=== PATIENT | female | born 1970 | race Caucasian/White ===

== ENCOUNTER → 2019-09-27 10:17 | Outpatient (ROUT) | payer BC, SELFPAY ==
[2019-09-27 10:42] LABS: Influenza A - CEPHEID Flu A POSITIVE (NEGATIVE); Influenza B - CEPHEID Flu B NEGATIVE (NEGATIVE)
== END ==
PROVIDERS: Visit Provider Family Medicine
DX: R50.9 Fever, unspecified (principal); R52 Pain, unspecified; R19.7 Diarrhea, unspecified; R05 Cough
CPT/HCPCS: 87502

== ENCOUNTER → 2020-09-18 11:39 | Outpatient (CLI) | payer BC, SELFPAY ==
--- NOTE | 2020-09-18 | DI.CT.S_ITS ---
PROCEDURE: CT CHEST WO CON INDICATIONS: Gastro-esphageal reflux diseas TECHNIQUE: Noncontrast 5 mm thick sections acquired from the pulmonary apices to the posterior costophrenic angles. 1 mm lung window, 5 mm thick coronal and sagittal and 7 mm axial MIP reformats were then acquired. For radiation dose reduction, the following was used: automated exposure control, adjustment of mA and/or kV according to patient size. COMPARISON: [facility], CT, CT ABDOMEN WO CON, 09/18/2020, 12:15. FINDINGS: Image quality: Excellent. Lungs and pleura: No acute air space opacities. No pleural effusions or pneumothorax. Central and peripheral airways are patent and normal in caliber. Mediastinum: Heart size is normal. No pericardial effusion. No mediastinal adenopathy by size criteria. Thoracic aorta and central pulmonary arteries are normal in size. Esophagus is normal in caliber. There is a moderate-sized hiatal hernia. Surgical clips are noted at the gastroesophageal junction which may be secondary to prior fundoplication procedure. Patient is status post cholecystectomy. Bones and chest wall: No suspicious bony lesions. No vertebral body compression fractures. No axillary or supraclavicular adenopathy by size criteria. Thyroid gland is unremarkable . Abdomen: Visualized upper abdominal solid organs and bowel loops appear normal in the absence of contrast. IMPRESSION: 1. No pulmonary radiopacities or acute cardiopulmonary findings. 2. Moderate-sized hiatal hernia. Dictated by: Radha Ni M.D. on 09/18/2020 at 14:21 Approved by: Radha Ni M.D. on 09/18/2020 at 14:24
--- NOTE | 2020-09-18 11:47 | DI.CT.S_ITS ---
PROCEDURE: CT ABDOMEN WO CON INDICATIONS: Gastro-esophageal reflux disease TECHNIQUE: After the administration of oral contrast, 5 mm thick sections acquired from the diaphragms to the iliac crests. 5 mm coronal and sagittal reformats were then performed. For radiation dose reduction, the following was used: automated exposure control, adjustment of mA and/or kV according to patient size. COMPARISON: None. FINDINGS: Image quality: Excellent. Lung bases: Lung bases are clear. Heart size is normal. Surgical clips are noted at the gastroesophageal junction. There is a small to moderate hiatal hernia. Solid organs: Liver is normal in size. Although surgical clips are visualized near the gallbladder fossa, the gallbladder is present and fluid-filled. Trace sludge or sub millimeter stones are layered in the fundus. No gallbladder wall thickening or pericholecystic fluid. Pancreas is normal in contours. Spleen is normal in size. No adrenal nodules. The left kidney is not visualized and is presumably surgically absent. Right kidney is unremarkable. Peritoneum and bowel: Bowel loops demonstrate normal wall thickness and caliber. No free fluid or air. Nodes and vessels: No retroperitoneal or mesenteric adenopathy by size criteria. Aorta and inferior vena cava are normal in size. Trace atheromatous calcifications are noted throughout the abdominal aorta. Bones: No suspicious bony lesions. No vertebral body compression fractures. Miscellaneous: No ventral hernias. IMPRESSION: 1. Small to moderate hiatal hernia. Surgical clips likely associated with prior fundoplication. 2. Trace gallbladder sludge. No findings to suggest acute cholecystitis or choledocholithiasis. Dictated by: Radha Ni M.D. on 09/18/2020 at 15:08 Approved by: Radha Ni M.D. on 09/18/2020 at 15:28
== END ==
PROVIDERS: PCP Internal Medicine; Referring Provider Internal Medicine; Visit Provider Internal Medicine
DX: K21.9 Gastro-esophageal reflux disease without esophagitis (principal); K44.9 Diaphragmatic hernia without obstruction or gangrene
CPT/HCPCS: 71250; 74150

== ENCOUNTER → 2021-02-10 07:33 | Outpatient (CLI) | payer BC, OTHER, SELFPAY ==
--- NOTE | 2021-02-10 | DI.US.S_ITS ---
PROCEDURE: US ABDOMEN COMPLETE INDICATIONS: RIGHT UPPER QUADRANT PAIN TECHNIQUE: Real-time scanning was performed of the abdominal and retroperitoneal organs, with image documentation. COMPARISON: [facility], CT, CT ABDOMEN WO CON, 09/18/2020, 12:15. FINDINGS: Liver: The liver demonstrates normal size. The liver demonstrates generalized mildly increased echogenicity. This decreases ultrasound sensitivity for detection of hepatic masses. The main portal vein demonstrates normal size and demonstrates normal appearing, hepatopetal flow. Gallbladder: Mobile sludge with small gallstones can be seen within the gallbladder. The gallbladder wall is not thickened, measuring 3 mm or less. No specific pericholecystic fluid is seen. The sonographic Britt sign is negative. Biliary ducts: Intrahepatic bile ducts are non-dilated. Extrahepatic bile duct caliber measures 5 mm. Normal is 6-7 mm or less in diameter, or 10 mm or less post-cholecystectomy. Pancreas: Visualized portions of the pancreas are sonographically normal. Spleen: The spleen is mildly enlarged, measuring 13.5 cm. Small accessory splenules can be seen adjacent to the primary spleen. Kidneys: The left kidney is surgically absent. The right kidney measures 13.9 cm in length. No hydronephrosis or nephrolithiasis. No solid masses. Aorta: Visualized aorta is normal in caliber at less than 3 cm. Iliacs: Proximal common iliac arteries are normal in caliber at less than 2.5 cm. IVC: Intrahepatic inferior vena cava is patent. Miscellaneous: No free abdominal fluid. IMPRESSION: Gallstones are seen, yet without additional sonographic signs of cholecystitis. Negative for biliary dilatation. Please correlate with physical examination findings, patient presentation, and laboratory values. Incidental note is made of: Mild fatty liver infiltration Left nephrectomy Mild splenomegaly, with small accessory splenules. Dictated by: Ranjit Maya M.D. on 02/10/2021 at 9:37 Approved by: Ranjit Maya M.D. on 02/10/2021 at 9:39
== END ==
PROVIDERS: PCP Internal Medicine; Referring Provider Internal Medicine; Visit Provider Internal Medicine
DX: R10.11 Right upper quadrant pain (principal); K80.20 Calculus of gallbladder without cholecystitis without obstruction; K76.0 Fatty (change of) liver, not elsewhere classified; R16.1 Splenomegaly, not elsewhere classified; Z90.5 Acquired absence of kidney
CPT/HCPCS: 76700

== ENCOUNTER → 2021-02-17 08:09 | Outpatient (CLI) | payer OTHER, SELFPAY ==
--- NOTE | 2021-02-17 | DI.NM.S_ITS ---
PROCEDURE: NM HIDA WITH CCK PHARMACEUTICAL: 5.3 mCi Tc-99m mebrofenin IV; 1.9 mcg CCK IV. INDICATIONS: Calculus of gallbladder without cholecystitis with TECHNIQUE: Following intravenous administration of Tc-99m mebrofenin, sequential anterior abdominal images were obtained. To evaluate the contractile response of the gallbladder in response to Cholecystokinin (CCK), sincalide (0.02 ?g/kg) was administered by slow intravenous infusion approximately 60 minutes after the administration of the radiopharmaceutical. Sequential imaging was continued for 30 minutes after the start of CCK infusion. Gallbladder ejection fraction was calculated. COMPARISON: [facility], CT, CT ABDOMEN WO CON, 09/18/2020, 12:15. [facility], US, US ABDOMEN COMPLETE, 02/10/2021, 8:10. FINDINGS: Biliary scan: There is normal tracer uptake and excretion by the liver. There is normal visualization of the intrahepatic ducts, common bile duct, and gallbladder. There is normal tracer transit into the duodenum. CCK stimulation: There is normal contractile response of the gallbladder to CCK infusion. The calculated gallbladder ejection fraction is 64% ; normal values are above 35%. It has been shown that any patient abdominal pain after CCK administration is related to the rate of CCK injection, rather than to any underlying gallbladder disease (Clinical Nuclear Medicine 2012; 37: 63-70. Journal of Nuclear Medicine 2014; 55: 1-9). IMPRESSION: 1. Normal filling of gallbladder. No evidence for acute cholecystitis. 2. Normal contractile response of gallbladder to CCK stimulation. Dictated by: Tammi Ingram M.D. on 02/17/2021 at 10:17 Approved by: Tammi Ingram M.D. on 02/17/2021 at 10:19
== END ==
PROVIDERS: PCP Internal Medicine; Referring Provider Internal Medicine; Visit Provider Internal Medicine
DX: K80.20 Calculus of gallbladder without cholecystitis without obstruction (principal); R10.11 Right upper quadrant pain; K21.9 Gastro-esophageal reflux disease without esophagitis
CPT/HCPCS: 78227; A9537; J2805

== ENCOUNTER → 2021-07-25 16:48 | Outpatient (CLI) | payer BC, OTHER, SELFPAY ==
--- NOTE | 2021-07-25 16:58 | DI.RAD.S_ITS ---
PROCEDURE: XR CHEST 2V INDICATIONS: COUGH TECHNIQUE: 2 views of the chest were acquired. COMPARISON: [facility], CT, CT ABDOMEN WO CON, 09/18/2020, 12:15. [facility], CT, CT CHEST WO CON, 09/18/2020, 12:15. FINDINGS: Surgical changes and devices: None. Lungs and pleura: Lungs are clear. No pleural effusions or pneumothorax. Mediastinum: Mediastinal contours are normal. Heart size is normal. Bones and chest wall: No suspicious bony abnormalities. Cholecystectomy clips. Prominent air-filled stomach again noted with small to moderate size hiatal hernia. IMPRESSION: No evidence of an acute cardiopulmonary abnormality. Small to moderate hiatal hernia with distended stomach similar to prior exams. Dictated by: Otoniel Pang D.O. on 07/26/2021 at 7:26 Approved by: Otoniel Pang D.O. on 07/26/2021 at 7:29
[2021-07-25 17:55] LABS: Add Manual Diff / Slide Review NO; Basophils Absolute Auto 100 /uL (0-100); Basophils Percent Auto 0.7 % (0-2); Eosinophils Absolute Auto 1900 /uL (0-450); Eosinophils Percent Auto 16.5 % (2-4); Hematocrit 40.4 % (36-46); Hemoglobin 13.5 g/dL (12.0-16.0); Lymphocytes Absolute Auto 2300 /uL (1100-4500); Lymphocytes Percent Auto 19.4 % (25-40); Mean Corpuscular HGB Conc 33.3 % (30-36); Mean Corpuscular Hemoglobin 30.6 PG (26-34); Monocytes Absolute Auto 1100 /uL (0-900); Neutrophils Absolute Auto 6400 /uL (1500-7000); Neutrophils Percent Auto 54.4 % (50-75); Platelet Count 302 X10^3/uL (150-400); Red Blood Cell Count 4.39 X10^6/uL (4.0-5.2); Red Cell Distribution Width 13.1 % (11.6-14.8); White Blood Cell Count 11.7 X10^3/uL (4.5-11.0)
[2021-07-25 18:03] LABS: Alanine Aminotransferase 39 IU/L (<35); Albumin 4.2 g/dL (3.5-5.0); Albumin Globulin Ratio 1.5 (1.0-2.8); Alkaline Phosphatase 173 U/L (38-126); Aspartate Aminotransferase 26 IU/L (14-36); BUN Creatinine Ratio 21.2 (6-22); Bilirubin Total 1.2 mg/dL (0.2-1.3); Blood Urea Nitrogen 22 mg/dL (7-17); C-Reactive Protein Quant 0.6 mg/dL (<1.0); Calcium 9.3 mg/dL (8.4-10.2); Carbon Dioxide 27 mmol/L (22-32); Chloride 102 mmol/L (98-107); Estimated Glomerular Filt Rate 55.9 mL/min (>60); Globulin 2.8 g/dL (1.7-4.1); Glucose 90 mg/dL (70-100); HEMOLYSIS < 15 (0-50); Potassium 4.5 mmol/L (3.4-5.1); Sodium 139 mmol/L (137-145)
[2021-07-25 18:19] LABS: Erythrocyte Sedimentation Rate 21 MM/HR (0-20)
[2021-07-28 08:50] LABS: Monotest Negative (Negative)
== END ==
PROVIDERS: Family Medicine; PCP Internal Medicine; Referring Provider Internal Medicine; Visit Provider Internal Medicine
DX: U07.1 COVID-19 (principal); R53.83 Other fatigue; R05.9 Cough, unspecified; K44.9 Diaphragmatic hernia without obstruction or gangrene
CPT/HCPCS: 36415; 71046; 80053; 85025; 85651; 86140; 86318